=== PATIENT | male | born 1995 | race Caucasian/White ===

== ENCOUNTER 2019-10-03 20:08 | Emergency (ER) | payer MEDICAID, SELFPAY ==
[2019-10-03] MEDS ORDERED: Adacel (T-DAP) 0.5 ML SYRINGE ONE (20:34)
[2019-10-03] MEDS ORDERED: Acetaminophen 500 MG TAB ONE (20:34)
[2019-10-03] MEDS ORDERED: Sulfameth/Trimethoprim DS 800-160mg TAB ONE (20:34)
[2019-10-03] MEDS ORDERED: Ibuprofen 800 MG TAB ONE (20:34)
== END 2019-10-03 21:54 | disposition home or self-care (01) ==
LOC: MADERS 20:08
DX: S50.861A Insect bite (nonvenomous) of right forearm, initial encounter (principal); L03.113 Cellulitis of right upper limb; F90.9 Attention-deficit hyperactivity disorder, unspecified type; F17.210 Nicotine dependence, cigarettes, uncomplicated
CPT/HCPCS: 90471; 90715